=== PATIENT | female | born 1970 | race Two or more races ===

== ENCOUNTER 2021-07-29 09:49 | Day surgery (SDC) | payer OTHER ==
[~2021-07-29] VITALS: Ht 157.5 cm; Wt 69.9 kg
== END 2021-07-29 21:00 | disposition home or self-care (01) ==
LOC: CIR.AMB 09:49
PROVIDERS: ATTEND Obstetrics & Gynecology
DX: N84.0 Polyp of corpus uteri (principal); Z88.0 Allergy status to penicillin; Z20.822 Contact with and (suspected) exposure to COVID-19